=== PATIENT | male | born 2005 | race Caucasian/White ===

== ENCOUNTER 2025-04-26 22:17 | Emergency (ER) | payer MEDICAID, SELFPAY ==
--- OUTSIDE RECORDS SUMMARY | 2025-04-26 22:20 | XMS_ITS | Clinical Summary ---
Author Organization [employer] [facility] [employer] Address [facility] [place] [address] Care Team Providers Care Pull Out Operator Name Role Phone Jayy Monk Primary Care Provider [phone] Allergies Active Allergy Reactions Criticality Noted Date Comments Fluoxetine Rash 07/21/2021 Medications acetaminophen (TYLENOL) 325 mg tablet Take by mouth every 4 hours if needed. Max acetaminophen dose: 4000mg in 24 hrs. 0 08/11/19 16 Active Omeprazole 20 mg tabletIndications :Stomach discomfort Take 1 tablet by mouth once daily before a meal. 30 tablet 5 08/10/19 20 Active clotrimazole (LOTRIMIN) 1 % creamIndications: Rash Apply topically to affected area(s) 2 times daily. 45 g 12/07/19 22 Active cetirizine (ZYRTEC) 10 mg tabletIndications :Seasonal allergic rhinitis, unspecified trigger TAKE ONE TABLET BY MOUTH ONE TIME DAILY 90 Tablet 2 06/26/20 22 Active methylphenidate HCl (RITALIN) 20 mg tabletIndications :ADHD (attention deficit hyperactivity disorder), inattentive type Take 1 Tablet (20 mg) by mouth 2 times daily at 7 AM and Noon. 60 Tablet 11/03/19 23 Active hydrOXYzine HCL (ATARAX) 10 mg tabletIndications :Anxiety disorder, unspecified type Take 1-2 Tablets (10-20 mg) by mouth every 8 hours if needed for Anxiety (or sleep). 25 Tablet 2 09/19/19 24 Active Active Problems Problem Noted Date Diagnosed Date Myopia of both eyes with astigmatism 03/22/2017 Controlled substance agreement signed 02/19/2017 Overview (02/19/2017): Signed 02/19/2017 Dr Margot Smalls Psychiatry Depression 10/29/2016 ADHD (attention deficit hype ractivity disorder), inattentive type 09/20/2016 Psychophysiological insomnia 08/20/2015 Anxiety disorder 08/20/2015 Seasonal allergies 01/11/2015 possible cat, smoke allergies 12/18/2011 Overview (12/18/2011): Possible cat, smoke Resolved Problems Problem Noted Date Diagnosed Date Resolved Date Condyloma acuminatum 06/22/2010 010 Molluscum contagiosum 06/22/20102012 Encounters Date Type Department Care Team Description 04/21/[address] [id number] Jayy Monk PA Form 04/05/[address] [phone] Jayy Monk PA Form 01/25/[address] [address] Jayy Monk PA Form from Last 3 Months Immunizations Immunization Administration Dates Next Due AMB Influenza, (Flumist) Yina e Intranasal,LAIV4 (Flu Clinic Only) 04/25/2012 DTaP 01/15/2006, 5,02/09/2005,12/15 DTaP-IPV (Kinrix) 11/15/2009 HIB PRP-T (ActHIB,Hiberix) 01/15/2006,10/16/2005 HIB-HepB (Comvax) 02/09/2005,2004 HPV 9 (Gardasil 9) 12/18/2017,01/22/2017 Hepatitis A (Peds) 12/18/2017,01/22/2017 Hepatitis B (Peds) 10/16/2005,02/09/2005, 005 Hib Conjugate, Unspecified 01/15/2006,,02/09/2005,12/15 Inactivated Polio Vaccine 01/15/2006,,02/09/2005,12/15 Influenza, IIV3 (Age 6-35 mos) 08/27/2006 Influenza, IIV3 (Age >=3 years) 04/28/20 14,06/12/2010,03/24/2009,07/31 Influenza, IIV4 05/11/2015 MENINGOCOCCAL VACCINE 2 VIAL 2MO-55YO (MENVEO) 01/22/2017 MMR 11/15/2009,01/15/2006 Pneumococcal conj 7-Valent (Prevnar 7) 0 01/15/2006,04/04/2005,02/09/2005,12/15 Tdap 01/22/2017 Varicella Vaccine 11/15/2009,10/16/2005 Family History Medical History Relation Name Comments ADD / ADHD Brother 1 Talib Allergic rhinitis Brother 2 Shahbaz Kidney disease Father Asthma Maternal Grandfather Heart Disease Maternal Grandfather Asthma Maternal Grandmother Thyroid Disease Mother Glaucoma Other pggf Allergic rhinitis Sister Relation Name Status Comments Brother 1 Talib Alive Brother 2 Shahbaz Alive Father Alive Maternal Grandfather Alive Maternal Grandmother Alive Mother Alive Other Paternal Grandfather Alive Paternal Grandmother Alive Sister Alive Social History Tobacco Use Types Packs/Day Years Used Date Smoking Tobacco: Every Day Cigarettes 0.3 11.8 Started: 2013 Smokeless Tobacco: Never Tobacco Cessation:Ready to Q uit: Yes; Counseling Given: Not Answered Comments:non smoking home Alcohol Use Standard Drinks/Week Comments Not Currently 0 (1 standard drink = 0.6 oz pur e alcohol) occ PHQ-2 Answer Date Recorded PHQ-2 TOTAL SCORE 2 11/25/2024 Social Connections Answer Date Recorded Do you often feel lonely or isolated from those around you? 0 11/25/2024 Financial Resource Strain Answer Date R ecorded Difficulty of Paying Living Expenses 3 11/25/2024 Difficulty of Paying Living Expenses Not on file 11/25/2024 Food Insecurity Answer Date Recorded Do you worry your food will run out before you are able to buy more? 1 11/25/2024 Transportation Needs Answer Date Record ed Does lack of transportation keep you from medica l appointments? 1 11/25/2024 Does lack of transportation keep you from work, meetings or getting things that you need? 1 11/25/2024 Housing Stability Answer Date Recorded What is your housing situation today? 1 11/25/2024 Utilities Answer Date Recorded Do you have trouble paying f or utilities (for example, heat, electricity, water, phone)? 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 Not on file Not on file Not on file Obstetrics History Last Filed Vital Signs Vital Sign Reading Time Taken Comments Blood Pressure 124/94 11/25/2024 1:44 PM CDT Pulse 82 11/25/2024 1:42 PM CDT Temperature 36.6 C (97.9 F) 08/10/2019 4:21 PM MEDICAL DIR Respiratory Rate 28 10/26/2012 2:40 PM CDT Oxygen Saturation 95% 11/25/2024 1:42 PM CDT Inhaled Oxygen Concentration - - Weight 117 kg (258 lb) 11/25/2024 1:42 PM CDT Height 184 cm (6' 0.44) 11/25/2024 1:42 PM CDT Body Mass Index 34.57 11/25/2024 1:42 PM CDT Plan of Treatment Health Maintenance Due Date Last Done Comments HIV for age 15-65 10/15/2019 Hepatitis C screening for age 18-79 2022 Pneumococcal series for age 6-49 (1 of 2 - PCV) 10/15/2023 01/15/2006, 04/04/2005, 02/09/2005, Additional history exists COVID-19 vaccine series ( - season) 2025 Influenza Vaccine (#1) 2025 5, 04/28/2014, 04/25/2012, Additional history exists BMI (ht and wt on same day) for age 18+ 11/25/2025 11/25/2024, 09/19/2023, 12/11/2022 Depression screening for age 12+ 11/25/2025 11/25/2024, 12/11/2022, 12/09/2021, Additional history exists Well Child Check for age 3-20 11/25/2025 11/25/2024, 12/11/2022, 12/06/2021, Additional history exists Tetanus booster 01/22/2027 01/22/2017 RSV vaccine for adults or (1 - 1-dose 75+ series) 10/15/2079 Hepatitis B series for 19+ Completed 10/16, 02/09/2005, 02/09/2005, Additional history exists Meningococcal series for age 11-21 Aged Out 01/22/2017 No longer eligible based on patient's age to complete this topic HPV series for age 9-45 Completed 12/18/2017, 01/22 Insurance [facility] MEDICAID [facility] Care Teams Pull Out Operator Relationship Specialty [place] [address] [place] [address] PCP - General Family Practice 10/28/13
[2025-04-26 22:26] VITALS: BP 133/87; PULSE 128; RESP 20; TEMP 36.6; O2SAT 97; BMI 76.2
--- NOTE | 2025-04-26 22:42 | CRLHL7_ITS ---
For Patients: As a result of the Cures Act, medical imaging exams and procedure reports are released immediately into your electronic medical record. You may view this report before your referring provider. If you have questions, please contact your health care provider. INDICATION: Two weeks cough. TECHNIQUE: Chest 2 view. COMPARISON: None. FINDINGS: Cardiovascular: Heart size and pulmonary vasculature are within normal limits. Lungs and pleural spaces: No focal consolidation, pleural effusion, or pneumothorax. There is a 5 mm nodular opacity in the lateral right upper lung, likely benign in this age group, versus artifact. Bones and soft tissues: No significant findings. IMPRESSION: No acute cardiopulmonary findings. Dictated by Yashira Tripp MD @ 04/26/2025 11:34:09 PM (Electronically Signed)
--- NOTE | 2025-04-26 22:42 | ED_ITS ---
HPI - General Adult General Time Seen by Provider: 22:42 Date Seen: 04/26/25 Chief complaint: Cough Stated complaint: cough/vomiting/fever Time Seen by Provider: 04/26/25 22:42 Source: patient, family, RN notes reviewed and old records reviewed Mode of arrival: ambulatory Limitations: no limitations History of Present Illness HPI narrative: Ravin is a very pleasant 19-year-old with up-to-date immunizations who comes to the emergency room with vomiting and cough. Patient notes the onset of a cough 2 weeks ago initially with sore throat the dissipated after the 1st day. He had actually been getting better but then over the last 48 hours his cough is increasing and today he has even had vomiting from coughing so hard. Denies a fever, ear pain. Thinks that his throat was sore on the 1st day because he was snoring and his uvula was swollen. This has since dissipated as previously noted. No diarrhea. History of childhood bronchospasms and has used nebulizer in the past. Related Data Home Medications ?Medication ?Instructions ?Recorded ?Confirmed methylphenidate 25.9 mg ER,IR 25.9 mg PO DAILY 5 04/26/25 disintegrating 24 hr tablet (Cotempla XR-ODT) Previous Rx's ?Medication ?Instructions ?Recorded albuterol sulfate 90 mcg/actuation 2 puff inhalation Q 6H PRN 04/26/25 aerosol inhaler (Ventolin HFA) shortness of breath or wheezing #6.7 grams Allergies Allergy/AdvReac Type Severity Reaction Status Date / Time Unable to Assess Allergy Verified 04/26/25 22:33 Review of Systems Status of ROS: Reports: 10 or more systems reviewed and unremarkable except as noted in History and below Const: Denies: fever or chills ENMT: Reports: nasal congestion; Denies: throat pain or neck pain Cardio: Denies: chest pain Resp: Reports: cough GI: Reports: vomiting; Denies: abdominal pain Musculo: Denies: neck pain Exam Narrative: Exam Narrative: Alert and oriented. Very pleasant gentleman in no acute distress. Eyes are clear. TMs bilaterally thought erythema. Neck is supple with no lymphadenopathy. Voice is normal with no unusual quality. Heart with regular rate and rhythm initially tachycardic upon arrival but now in the upper 90s.. Mild expiratory wheezing noted. Moving all extremities. No unusual rashes. Const: Vital Signs, click to edit/add: Vital Signs - 24 hr 04/26/25 22:26 Temperature 97.9 F Pulse Rate [Pulse Oximeter] 128 H Respiratory Rate 20 Blood Pressure [Le ft Upper Arm] 133/87 Pulse Oximetry 97 Oxygen Delivery Me thod Room Air Documenting provider has reviewed patient's vital signs: yes Course Course ED Course: Vomiting is limited to severe cough. I do hear him cough and there is no whoop like quality anemia is a shins are up-to-date and thus I do not think this is whooping cough or pertussis. Patient has had triple swab done. While I do think that this likely started as a viral infection possibly even COVID he did have gradual improvement and then sudden worsening over the last 2 days. We will obtain chest x-ray at this time to look for secondary pneumonia. Will try a DuoNeb as well. Given tachycardia would consider PE but no calf tenderness and patient has appropriate O2 sets. No chest pain. Reevaluation(s) Reevaluation #1: Patient much improved after albuterol nebulizer. Vital Signs Vital signs: Initial Vital Signs Temperature 97.9 F 04/26/25 22:26 Temperature Source Temporal Artery Scan 04/26/25 22:26 Pulse Rate 128 H 04/26/25 22:26 Respiratory Rate 20 04/26/25 22:26 Blood Pressure 133/87 04/26/25 22:26 Blood Pressure Mean 102 04/26/25 22:26 Pulse Oximetry 97 04/26/25 22:26 Oxygen Delivery Method Room Air 04/26/25 22:26 Vital Signs Temperature 97.9 F 04/26/25 22:26 Pulse Rate 128 H 04/26/25 22:26 Respiratory Rate 20 04/26/25 22:26 Blood Pressure 133/87 04/26/25 22:26 Pulse Oximetry 97 04/26/25 22:26 Oxygen Delivery Method Room Air 04/26/25 22:26 Temperature 97.9 F 04/26/25 22:26 Pulse Rate 128 H 04/26/25 22:26 Respiratory Rate 20 04/26/25 22:26 Blood Pressure 133/87 04/26/25 22:26 Pulse Oximetry 97 04/26/25 22:26 Oxygen Delivery Method Room Air 04/26/25 22:26 Medications Administered Medications: Discontinued Medications Generic Name Dose Route Start Last Admin Trade Name Ljq PRN Reason Stop Dose Admin Albuterol/Ipratropium 1 neb 04/26/25 22:44 04/26/25 23:05 Iprat-Albut 0.5-2.5 Mg/3 Ml Neb 04/26/25 22:45 1 neb ONCE ONE Administration Medical Decision Making MDM Narrative Medical decision making narrative: 1. Lower respiratory infection-patient noted initial improvement over 2 weeks. Better over the past 48 hours has increasing cough. Will treat with Zithromax is chest x-ray is reassuring. 500 mg today followed by 250 mg days 2 through 5. Will also provide inhaler through pharmacy. Triple swab is negative. Patient will need to return for worsening symptoms and as needed. 2. Pulmonary nodule-likely benign in this age group according to Radiology but will inform patient. Will need follow-up chest x-ray in 3-6 months to ensure no change in size. Did discuss with Ravin and his mom in regards to this. 3. Disposition -home at this time. Zithromax as directed. Prednisone 20 mg b.i.d. x 3 days. Both medications will be sent to our [facility] meds machine. Albuterol inhaler will be sent to pharmacy. Puffs q.4 hours p.r.n.. Return as needed for worsening symptoms especially high fever difficulty breathing and as needed. Discussed cessation of vaping as well. Medical Records Medical records reviewed: Yes I reviewed the patient's medical records Lab Data Lab results reviewed: Yes I reviewed the patient's lab results Labs: Lab Results 04/26/25 Range/Units 22:30 SARS-CoV-2 (PCR) Negative SARS-CoV-2 (Negative) Influenza Type A (PCR) Negative PCR FLU A (Negative) Influenza Type B (PCR) Negative PCR FLU B (Negative) RSV (PCR) Negative PCR RSV (Negative) Imaging Data Chest x-ray: Attestation: I have reviewed the pertinent imaging results. My impression: I do not note any obvious pneumonia. Radiologist's impression: Cardiovascular: Heart size and pulmonary vasculature are within normal limits. Lungs and pleural spaces: No focal consolidation, pleural effusion, or pneumothorax. There is a 5 mm nodular opacity in the lateral right upper lung, likely benign in this age group, versus artifact. Bones and soft tissues: No significant findings. IMPRESSION: No acute cardiopulmonary findings. Discharge Plan Discharge Clinical Impression: Infection of lower respiratory tract Patient Disposition: Home, Self-Care Condition: Improved Additional Instructions: Start Zithromax and prednisone tonight. Albuterol has been sent to your pharmacy. Push fluids and stay well hydrated. Return to the emergency room for worsening symptoms. Follow-up with your primary MD in regards to a pulmonary nodule in the lung. According to radiologist: Cardiovascular: Heart size and pulmonary vasculature are within normal limits. Lungs and pleural spaces: No focal consolidation, pleural effusion, or pneumothorax. There is a 5 mm nodular opacity in the lateral right upper lung, likely benign in this age group, versus artifact. Bones and soft tissues: No significant findings. IMPRESSION: No acute cardiopulmonary findings. Prescriptions: New albuterol sulfate [Ventolin HFA] 90 mcg/actuation HFA aerosol inhaler 2 puff inhalation Q6H PRN (Reason: shortness of breath or wheezing) Qty: 6.7 0RF Rx Instructions: May substitute generic No Action Cotempla XR-ODT 25.9 mg tablet,disinteg ER biphase 24h 25.9 mg PO DAILY Follow Up/Referrals: Provider,Not a Local [Non-Staff, Family Practice] Stand Alone Forms: [employer] Info Instructions
[2025-04-26] MEDS: IPRAT-ALBUT 0.5-2.5 MG/3 ML NEB 1 NEB IH (23:05)
[2025-04-26 23:18] LABS: PCR FLU A Negative PCR FLU A (Negative); PCR FLU B Negative PCR FLU B (Negative); PCR RSV Negative PCR RSV (Negative); SARS PCR* Negative SARS-CoV-2 (Negative)
[2025-04-26 23:58] VITALS: BP 123/81; PULSE 113; RESP 18; O2SAT 95
== END 2025-04-27 00:04 | disposition home or self-care (01) ==
PROVIDERS: Emergency Provider Family Medicine; PCP Physician Assistant Medical
DX: J22 Unspecified acute lower respiratory infection (principal); R91.1 Solitary pulmonary nodule
CPT/HCPCS: 71046; 87631; 99283; 99284

== ENCOUNTER 2025-06-15 18:00 | Outpatient (CLI) | payer MEDICAID, SELFPAY | END 2025-06-15 18:01 | disposition home or self-care (01) | LOC: NFLDUCREF 18:01 | PROVIDERS: PCP Physician Assistant Medical; Visit Provider Physician Assistant | DX: R10.85 Abdominal pain of multiple sites (principal) | CPT/HCPCS: 80053; 87086 ==

== ENCOUNTER 2025-06-15 19:09 | Emergency (ER) | payer MEDICAID, SELFPAY ==
--- OUTSIDE RECORDS SUMMARY | 2025-06-15 19:11 | XMS_ITS | Clinical Summary ---
Author Organization [facility] Address [facility] [place] [address] Care Team Providers Care Rn Perioperative Name Role Phone Jayy Monk Primary Care Provider [phone] Allergies Active AllergyReactionsCriticalityNoted GnzyNhjbokpcIbjymezhvuXywc80/14/2022 Medications MedicationSigDispense QuantityRefillsLast FilledStart DateEnd DateStatus acetaminophen (TYLENOL) 325 mg tablet Take by mouth every 4 hours if needed. Max acetaminophen dose: 4000mg in 24 hrs. Active Omeprazole 20 mg tablet Indications:Stomach discomfortTake 1 tablet by mouth once daily before a meal. 30 tablet Active Additional Information Patient not taking.Reported on 04/27/2025 clotrimazole (LOTRIMIN) 1 % cream Indications:RashApply topically to affected area(s) 2 times daily. 45 g 12/06/2021ctive Additional Information Patient not taking.Reported on 04/27/2025 cetirizine (ZYRTEC) 10 mg tablet Indications:Seasonal allergic rhinitis, unspecified triggerTAKE ONE TABLET BY MOUTH ONE TIME DAILY 90 Tablet ctive methylphenidate HCl (RITALIN) 20 mg tablet Indications:ADHD (attention deficit hyperactivity disorder), inattentive type Take 1 Tablet (20 mg) by mouth 2 times daily at 7 AM and Noon. 60 Tablet 11/02/2022ctive hydrOXYzine HCL (ATARAX) 10 mg tablet Indications:Anxiety disorder, unspecified typeTake 1-2 Tablets (10-20 mg) by mouth every 8 hours if needed for Anxiety (or sleep). 25 Tablet 4Active Additional Information Patient not taking.Reported on 04/27/2025 albuterol-ipratropium (DUONEB) (2.5 mg-0.5 mg)/3 mL NEBULIZATION solution Indications:Lower respiratory infectionInhale 3 mL via a nebulizer 4 times daily if needed for Shortness Of Breath. 75 mL 5Active Nebulizer Indications:Lower respiratory infectionNebulizer, disposable neb kit x 4, reuseable neb kit x 1, mask x 1, filters x 1. Frequency of use: daily; Medication: Duoneb Length of need: 99 scysit105Active Active Problems ProblemNoted DateDiagnosed DateMyopia of both eyes with thacehkafdx18/15/2017 Controlled substance agreement ytqgzy8402/19/2017 Overview (02/19/2017): Signed 02/19/2017 Dr Margot Smalls Psychiatry Mzabtldoay39/24/2017ADHD (attention deficit hyperactivity disorder), inattentive type09/20/2016Psychophysiological cesnzlot51/13/2016Anxiety urvnioxa49/13/2016 Seasonal hpnmuanmf34/07/2015possible cat, smoke /12/2012 Overview (12/18/2011): Possible cat, smoke Resolved Problems ProblemNoted DateDiagnosed DateResolved DateCondyloma mpbdoxwumr02/16/2010 06/22/2010Molluscum xarjtikojuf77 Encounters DateTypeDepartmentCare MzoaDpizdyuujcy82/04/2025 10:00 AM CSTAncillary Procedure [facility] [address] [place] [address] Wkfqqye7106/10/20254966Recdjy16/29/0002Apdynh12/22/2025 11:30 AM CDTAncillary Procedure [facility] [address] [place] [address] 04/27/2025 2:00 PM CDTOffice Visit [facility] [id number] [place] [address] Jayy Monk PA Hospital F/U; Medication List Update (Zithromax and prednisone, albuterol inhaler)04/27/20253713Ceipgx30/20/2025Orders Only [facility] Scanner 1 scan: (1-Ord) [facility], XR CHEST 2V, 51Telephone [address] [address] Jayy Monk PA Form04/05/2025Telephone [address] [address] Jayy Monk PA Formfrom Last 3 Months Immunizations ImmunizationAdministration DatesNext DueAMB Influenza, (Flumist) Live Intranasal,LAIV4 (Flu Clinic Only)04/25/2012DTaP01/15/2006,04/04/2005,02/09/2005 ,2004DTaP-IPV (Kinrix)11/15/2009HIB PRP-T (ActHIB,Hiberix)01/15/2006, 10/16/2005HIB-HepB (Comvax)02/09/2005,2004HPV 9 (Gardasil 9)12/18/2017, 01/22/2017Hepatitis A (Peds)12/18/2017,01/22/2017Hepatitis B (Peds)10/16/2005, 02/09/2005,2004Hib Conjugate, Pvvcuqtlbti25/11/2006,10/16/2005,02/09/2005, 2004Inactivated Polio Kedbitc4601/15/2006,04/04/2005,02/09/2005,2004 Influenza, IIV3 (Age 6-35 mos)08/27/2006Influenza, IIV3 (Age >=3 years) 04/28/2014,06/12/2010,03/24/2009,07/31/2007Influenza, CBT594/10/2014 MENINGOCOCCAL VACCINE 2 VIAL 2MO-55YO (MENVEO)01/22/2017MMR11/15/2009,01/15/2006 Pneumococcal conj 7-Valent (Prevnar 7)01/15/2006,04/04/2005,02/09/2005, 2004Tdap01/22/2017Varicella Hyrkevp9411/15/2009,10/16/2005 Family History Medical HistoryRelationNameCommentsADD / ADHDBrother 1JamisonAllergic rhinitis Brother 2BryceKidney diseaseFatherAsthmaMaternal GrandfatherHeart Disease Maternal GrandfatherAsthmaMaternal GrandmotherThyroid DiseaseMotherGlaucomaOther pggfAllergic rhinitisSisterRelationNameStatusCommentsBrother 1JamisonAlive Brother 2BryceAliveFatherAliveMaternal GrandfatherAliveMaternal GrandmotherAlive MotherAliveOtherPaternal GrandfatherAlivePaternal GrandmotherAliveSisterAlive Social History Tobacco UseTypesPacks/DayYears UsedDateSmoking Tobacco: Every DayCigarettes0.3 11.9Started: 2014Smokeless Tobacco: Never Tobacco Cessation:Ready to Q uit: Yes; Counseling Given: Not Answered Comments:non smoking home Alcohol UseStandard Drinks/WeekCommentsNot Currently0 (1 standard drink = 0.6 oz pure alcohol)occPHQ-2AnswerDate RecordedPHQ-2 TOTAL AYBER236Social ConnectionsAnswerDate RecordedDo you often feel lonely or isolated from those around you?lcohol UseAnswerDate RecordedFrequency of Alcohol ConsumptionNot on file04/27/2025How many drinks containing alcohol do you have on a typical day when you are drinking?Frequency of Binge DrinkingNot on file04/27/2025Financial Resource StrainAnswerDate RecordedDifficulty of Paying Living Gimzgpnd008/21/2025Difficulty of Paying Living ExpensesNot on file 11/25/2024Food InsecurityAnswerDate RecordedDo you worry your food will run out before you are able to buy more?Transportation NeedsAnswerDate RecordedDoes lack of transportation keep you from medical appointments?1 11/25/2024Does lack of transportation keep you from work, meetings or getting things that you need?Housing StabilityAnswerDate RecordedWhat is your housing situation today?UtilitiesAnswerDate RecordedDo you have trouble paying for utilities (for example, heat, electricity, water, phone)?1 11/25/2024Sex and Gender InformationValueDate RecordedSex Assigned at BirthNot on fileLegal NjpPhyb7807/21/2012 7:53 AM CSTGender IdentityNot on fileSexual OrientationNot on fileOccupationIndustryJob Start DateJob End Dateshift leadNot on fileNot on fileNot on file Last Filed Vital Signs Vital SignReadingTime TakenCommentsBlood Awjfducd710/7004/27/2025 2:16 PM CDT Ifgja61542/21/2025 2:16 PM KKWErterspgrvn82.9 ??C (100.2 ??F)04/27/2025 2:16 PM CDTRespiratory Qidb070710/26/2012 2:40 PM CDTOxygen Yurtjirqlr10%04/27/2025 2:16 PM CDTInhaled Oxygen Concentration--Fjjsmt535.3 kg (256 lb 4.8 oz)04/27/2025 2:16 PM QIVYukqbc971 cm (6' 0.44)11/25/2024 1:42 PM CDTBody Mass Index-- Plan of Treatment Health MaintenanceDue DateLast DoneCommentsHIV for age 15- Meningococcal series for age 11-21 (2 - 2-dose series) Hepatitis C screening for age 18-793Pneumococcal series for age 6-49 (1 of 2 - PCV), 04/04/2005, 02/09/2005, Additional history existsCOVID-19 vaccine series ( - 2024- season)2025Influenza Vaccine (#1)/10/2014, 04/28/2014, 04/25/2012, Additional history existsBMI (ht and wt on same day) for age 18+/, 09/19/2023, 12/11/2022 Depression screening for age 12+/, 12/11/2022, 12/09/2021, Additional history existsWell Child Check for age 3-/, 12/11/2022, 12/06/2021, Additional history existsTetanus gghxadn6201/22/2027 01/22/2017Hepatitis B series for 19+Hggfufqla85/11/2006, 02/09/2005, 02/09/2005, Additional history existsHPV series for age 9-83Qflerqyod81/13/2018, 01/22/2017 Procedures Procedure NamePriorityDate/TimeAssociated DiagnosisCommentsXR CHEST 2 VIEWS PA AND EINFJSPTmuowjo18/04/2025 9:52 AM DATABASE DESIGN ANALYST Lower respiratory infection CT CHEST PVHPRC41 11:46 AM CDT Lung nodule SCAN-RADIOLOGY JLDGWR6504/26/2025 12:00 AM CDT from Last 3 Months Results * XR CHEST 2 VIEWS PA AND LATERAL (06/10/2025 9:52 AM DATABASE DESIGN ANALYST)Anatomical Region LateralityModalityCHEST, THORAX, Lung, HEARTComputed RadiographySpecimen (Source)Anatomical Location / LateralityCollection Method / VolumeCollection TimeReceived Time06/10/2025 1:42 PM DATABASE DESIGN ANALYST Narrative 06/10/2025 1:42 PM DATABASE DESIGN ANALYST For Patients: As a result of the Cures Act, medical imaging exams and procedure reports are released immediately into your electronic medical record. You may view this report before your referring provider. If you have questions, please contact your health care provider. INDICATION: Lower respiratory tract infection TECHNIQUE: Chest 2 views. COMPARISON: CT chest April 28, 2025 FINDINGS/ IMPRESSION: No abnormal airspace opacity, suggest resolution of previously noted endobronchial infection. No effusion or pneumothorax. Cardiac size is within normal limit without pulmonary edema. No acute osseous abnormality. Dictated by Jaciel Bolanos MD @ 06/10/2025 1:42:41 PM (Electronically Signed) Procedure Note Jaciel Bolanos MD - 06/10/2025 For Patients: As a result of the Cures Act, medical imagingexams and procedure reports are released immediately into your electronicmedical record. You may view this report before your referring provider.If you have questions, please contact your health care provider. INDICATION: Lower respiratory tract infection TECHNIQUE: Chest 2 views. COMPARISON: CT chest April 28, 2025 FINDINGS/ IMPRESSION: No abnormal airspace opacity, suggest resolution of previously noted endobronchial infection. No effusion or pneumothorax. Cardiac size is within normal limit without pulmonary edema. No acute osseous abnormality. Dictated by Jaciel Bolanos MD @ 06/10/2025 1:42:41 PM (Electronically Signed) Authorizing ProviderResult TypeResult StatusRobbin Gamaliel Monk PAGENERAL IMAGING Final Result * CT CHEST WO (04/28/2025 11:46 AM CDT)Anatomical RegionLateralityModalityCHEST, THORAX, HEARTComputed TomographySpecimen (Source)Anatomical Location / LateralityCollection Method / VolumeCollection TimeReceived Time04/28/2025 1:08 PM CDT Impressions 04/28/2025 1:08 PM CDT 1. Multifocal clusters of centrilobular ground-glass opacities and areas of nodular consolidation most pronounced within the right upper lobe likely corresponding to finding of pulmonary nodule on outside chest radiograph and most consistent with endobronchial infection. 2. Severe diffuse hepatic steatosis. Please note that all CT scans at this facility use dose modulation, iterative reconstruction, and/or weight-based dosing when appropriate to reduce radiation dose to as low as reasonably achievable. Dictated by Haleigh Quigley MD @ 04/28/2025 1:08:00 PM (Electronically Signed) Narrative 04/28/2025 1:08 PM CDT For Patients: As a result of the Cures Act, medical imaging exams and procedure reports are released immediately into your electronic medical record. You may view this report before your referring provider. If you have questions, please contact your health care provider. INDICATION: Lung nodule seen in lateral right upper lobe on recent outside chest x-ray TECHNIQUE: CT chest without contrast. COMPARISON: CT chest without contrast 10/01/2018. FINDINGS: Lungs and pleura: There are multiple clusters of centrilobular ground-glass and solid nodules most pronounced in the right upper lobe. The largest nodule measures up to 1.5 centimeters in size in thelateral right upper lobe (series 9, image 52). No pleural effusion or pneumothorax. Heart and vasculature: Heart size is normal. Thoracic aorta and pulmonary artery are normal in caliber. Lymph nodes/mediastinum: No mediastinal, hilar, or axillary adenopathy. Decreased small amount of anterior mediastinal soft tissue consistent with residual thymus. Chest wall: Minimal gynecomastia. Upper abdomen: Marked diffuse hepatic steatosis. Bones: No acute or suspicious osseous abnormality. Vacuum phenomenon within the bilateral glenohumeral joints. Procedure Note Haleigh Quigley MD - 04/28/2025 For Patients: As a result of the Cures Act, medical imagingexams and procedure reports are released immediately into your electronicmedical record. You may view this report before your referring provider.If you have questions, please contact your health care provider. INDICATION: Lung nodule seen in lateral right upper lobe on recent outside chest x-ray TECHNIQUE: CT chest without contrast. COMPARISON: CT chest without contrast 10/01/2018. FINDINGS: Lungs and pleura: There are multiple clusters of centrilobularground-glass and solid nodules most pronounced in the right upper lobe.The largest nodule measures up to 1.5 centimeters in size in the lateralright upper lobe (series 9, image 52). No pleural effusion orpneumothorax. Heart and vasculature: Heart size is normal. Thoracic aorta and pulmonaryartery are normal in caliber. Lymph nodes/mediastinum: No mediastinal, hilar, or axillary adenopathy.Decreased small amount of anterior mediastinal soft tissue consistent withresidual thymus. Chest wall: Minimal gynecomastia. Upper abdomen: Marked diffuse hepatic steatosis. Bones: No acute or suspicious osseous abnormality. Vacuum phenomenonwithin the bilateral glenohumeral joints. IMPRESSION: 1. Multifocal clusters of centrilobular ground-glass opacities and areasof nodular consolidation most pronounced within the right upper lobelikely corresponding to finding of pulmonary nodule on outside chestradiograph and most consistent with endobronchial infection. 2. Severe diffuse hepatic steatosis. Please note that all CT scans at this facility use dose modulation,iterative reconstruction, and/or weight-based dosing when appropriate toreduce radiation dose to as low as reasonably achievable. Dictated by Haleigh Quigley MD @ 04/28/2025 1:08:00 PM (Electronically Signed) Authorizing ProviderResult TypeResult StatusRobbin Gamaliel Monk PACTFinal Result * SCAN-RADIOLOGY REPORT (04/26/2025 12:00 AM CDT)Anatomical RegionLaterality ModalityOther Narrative Authorizing ProviderResult TypeResult StatusScannerOTHERFinal Result from Last 3 Months Insurance * Guarantor: Ravin Araujo TypeRelation to PatientDate of BirthPhoneSp[facility] AddressPersonal/TexbmcXoyd79/09/2006 [address] [place] [address] * Guarantor: Ravin Araujo TypeRelation to PatientDate of BirthSaint [facility] AddressPersonal/FfqjmaSzfs22/09/2006 [address] [place] [address] Care Teams Team MemberRelationshipSpecialty[place] [address] [place] [address] PCP - GeneralFamily Practice10/28/13
--- NOTE | 2025-06-15 19:13 | ED_ITS ---
HPI - General Adult General Date Seen: 06/15/25 Chief complaint: Abdominal Pain Stated complaint: blood in urine Time Seen by Provider: 06/15/25 19:10 History of Present Illness HPI narrative: 19-year-old male is referred to the ER today from urgent care with concerns of dark colored/brown urine, possibly hematuria. He was seen in the [facility] today by Dr. Harpreet scherer. He had had a history of 24 hours of diarrhea with 10-15 diarrheal stools yesterday and 5-6 today. No mucousy stool. This afternoon he and he knows little bit of blood on the toilet paper while wiping his gluteal cleft. He has vomited only 1 time. He is having abdominal pain, in the epigastrium and right side of his lower abdomen. No fevers or other body aches. He has been using ammonia foot is still having diarrhea. He is having dark tea-colored urine. He was referred to the ER with concern for possible hepatitis, colitis, or acute kidney injury. CBC was normal in urgent care. White blood cell count 8.16, hemoglobin 16.3, platelet 199. Sodium 138, potassium 4.0, chloride 95, bicarb 30, BUN 15, creatinine 1.3, glucose 95, calcium 9.1. Total bilirubin 1.3. Alk-phos normal at 61. AST mildly elevated at 51. ALT elevated at 83. Urinalysis was brown colored. There was 3+ protein, trace glucose, positive ketones, 3+ blood, negative nitrite. Positive bilirubin, greater than 100 red cells per high-power field. 2-5 white cells. History from the patient, supplemented by his mother... He works at [employer]. He ate a pizza that was undercooked on Saturday night. He was made by 1 of his friends a pop or if he has any thinks that he probably some the dull was undercooked and his friend put a lot of jalapeno some pepperoni on it and also lot of jalapeno juice. He started with GI symptoms, notably GI upset and frequent watery diarrhea following morning on Saturday. He had many watery stools that day, typically triggered every time he tried to eat or drink anything. He was not really nauseous and only vomited 1 time. No significant pain. No fever. GI symptoms or ongoing yesterday predominantly with diarrhea. Today the diarrhea has changed and is still frequent but a little bit less frequent ware from bring watery to were blood tinged. He is having a little bit of lower abdominal pain today. No weakness. No fever. Urination has also been quite a bit darker in brown colored since yesterday. No flank pain. No known injury. He has no known personal or family history of inflammatory bowel disease. Mother notes that she has a lot of GI problems which sounds like are not clearly diagnosed yet. It sounds like Crohn's disease has been ruled out for her. Other than his undercooked pizza, no other suspicious food intake. No recent travel. No recent antibiotics. His fiancee is here with him and she is not ill Related Data Home Medications ?Medication ?Instructions ?Recorded ?Confirmed methylphenidate 25.9 mg ER,IR 25.9 mg PO DAILY 5 06/15/25 disintegrating 24 hr tablet (Cotempla XR-ODT) Previous Rx's ?Medication ?Instructions ?Recorded albuterol sulfate 90 mcg/actuation 2 puff inhalation Q 6H PRN 04/26/25 aerosol inhaler (Ventolin HFA) shortness of breath or wheezing #6.7 grams Allergies Allergy/AdvReac Type Severity Reaction Status Date / Time Fish Containing Products Allergy Unknown Verified 06/15/25 19:30 Penicillins Allergy Unknown Verified 06/15/25 19:30 PFSH [facility] Social History Smoking Status: Current every day smoker Do you use any of these nicotine containing products: None and Vaping Products How often do you have a drink containing alcohol: monthly or less How often do you have six or more drinks on one occasion: Less than monthly AUDIT-C Alcohol total score: 2 Non-prescribed substance use: denies use service: No Exam Narrative: Exam Narrative: Constitutional: Appears well-developed and well-nourished. Alert. Robust. Overall well-appearing. Conversant. Non toxic. HENT: Head: Atraumatic. Nose: Nose normal. Mouth/Throat: Oral mucosa is clear and moist. no trismus. Pharynx normal. Tonsils symmetric. No tonsillar enlargement, erythema, or exudate. Eyes: Conjunctivae normal. EOM normal. Pupils equal, round, and reactive to light. No scleral icterus. Neck: Normal range of motion. Neck supple. No tracheal deviation present. Cardiovascular: Normal rate, regular rhythm. No gallop. No friction rub. No murmur heard. Symmetric radial artery pulses Pulmonary/Chest: Effort normal. No stridor. No respiratory distress. No wheezes. No rales. No rhonchi . No tenderness. Abdominal: Soft. Bowel sounds normal. No distension. No mass. Suprapubic and left lower quadrant tenderness. No rebound. No guarding. No CVA tenderness. Musculoskeletal: RUE: Normal range of motion. No tenderness. No deformity LUE: Normal range of motion. No tenderness. No deformity RLE: Normal range of motion. No edema. No tenderness. No deformity LLE: Normal range of motion. No edema. No tenderness. No deformity Neurological: Alert and oriented to person, place, and time. Normal strength. CN II-VII intact. No sensory deficit. GCS eye subscore is 4. GCS verbal subscore is 5. GCS motor subscore is 6. Normal coordination Skin: Skin is warm and dry. No rash noted. No pallor. Normal capillary refill. Psychiatric: Normal mood. Normal affect. Polite. Const: Vital Signs, click to edit/add: Vital Signs - 24 hr 06/15/25 19: Temperature 98.4 F Pulse Rate [Right Pulse Oximeter] 90 Respiratory Rate 18 Blood Pressure [Ri ght Upper Arm] 147/87 H Pulse Oximetry 96 Oxygen Delivery Me thod Room Air Course Course ED Course: Recheck-feeling much better after IV fluids. Was up to the bathroom and urinated clear urine. Recheck had a bloody stool that was semi formed. Stool collected and sent to lab for culture. He is feeling better. Vital Signs Vital signs: Initial Vital Signs Temperature 98.4 F 06/15/25 19:22 Temperature Source Temporal Artery Scan 06/15/25 19:22 Pulse Rate 90 06/15/25 19:22 Pulse Rhythm Regular 06/15/25 19:22 Pulse Strength 3+ Normal 06/15/25 19:22 Respiratory Rate 18 06/15/25 19:22 Blood Pressure 147/87 H 06/15/25 19:22 Blood Pressure Mean 107 H 06/15/25 19:22 Blood Pressure Position Sitting 06/15/25 19:22 Pulse Oximetry 96 06/15/25 19:22 Oxygen Delivery Method Room Air 06/15/25 19:22 Vital Signs Temperature 98.4 F 06/15/25 19:22 Pulse Rate 90 06/15/25 19:22 Respiratory Rate 18 06/15/25 19:22 Blood Pressure 147/87 H 06/15/25 19:22 Pulse Oximetry 96 06/15/25 19:22 Oxygen Delivery Method Room Air 06/15/25 19:22 Temperature 98.4 F 06/15/25 19:22 Pulse Rate 90 06/15/25 19:22 Respiratory Rate 18 06/15/25 19:22 Blood Pressure 147/87 H 06/15/25 19:22 Pulse Oximetry 96 06/15/25 19:22 Oxygen Delivery Method Room Air 06/15/25 19:22 Medications Administered Medications: Discontinued Medications Generic Name Dose Route Start Last Admin Trade Name Freq PRN Reason Stop Dose Admin Sodium Chloride 1,000 mls @ 1,000 mls/hr 06/15/25 20:00 06/15/25 21:04 0.9 % Sodium Chloride 1000 Ml IV 06/15/25 20:59 Infused .Q1H JUAN Infusion Medical Decision Making MDM Narrative Medical decision making narrative: Pleasant generally healthy 19-year-old male is referred to the ER today from the urgent care with concern for diarrhea (ongoing now for 2 and half days). Stool was initially watery but now has turned bloody. Along with that he has had brown colored urine and has signs of microscopic hematuria on his urinalysis from urgent care. Concern here is for possible infectious diarrhea, including bacterial enteritis since he did have some undercooked food on the day prior to developing symptoms. I have ordered stool bacterial pathogens panel and C diff. however, I strongly suspect bacterial enteritis. Less likely would be potential autoimmune colitis such as Crohn's. Differential for hematuria includes kidney stone. CT scan shows a mild colitis without any perforation, abscess, obstruction. Also some associated reactive lymph nodes. With presentation of infectious diarrhea and hematuria concern also would be potential development of hemolytic uremic syndrome. On labs from Urgent Care he does not have anemia, thrombocytopenia. Creatinine from urgent care is 1.3 but with no baseline unclear if this is an acute kidney injury or potentially his normal. He has a fairly robust, muscular young man. At this point he does not have any signs of acute renal failure, thrombocytopenia, anemia. We discussed potential peripheral smear to look for signs of hemolysis with our laboratory, but this test is not available here in the ER tonight. Repeat labs here in the ER show stable hemoglobin, actually slightly improved down to 1.2. Hemoglobin and platelet count are stable. LFTs are mildly abnormal and slightly improved compared to earlier. Based on presence of colitis on CT I would doubt a viral hepatitis. Patient and his mother report that he has had mildly abnormal LFTs at previous Dr. Checkups. However I do not have those records available to me here. Venous lactic acid is normal. He is hemodynamically stable and overall nontoxic appearing. He feels much better after IV fluids. No ongoing abdominal pain. No fever. He had 1 small volume bloody semi formed stool here in the ER but no further diarrhea. No vomiting. He is comfortable managing his symptoms at home with his mother and fiancee. Discussed that this is probably an infection and that we need to take precautions. Stay home from work until he is better. Also avoid spreading his terms to his family. Discussed that he needs follow-up within 24-48 hours. Return to the ER immediately if worse. Questions answered. Lab Data Labs: Lab Results 06/15/25 Range/Units 20:00 WBC 7.96 (4.50-11.00) K/uL RBC 5.44 (4.30-5.90) m/uL Hgb 15.5 (13.5-17.5) gm/dL Hct 45.6 (37.0-53.0) % MCV 84 (80-100) fL MCH 29 (26-34) pg MCHC 34 (32-36) gm/dL RDW Coeff of Kp 12.2 (11.5-15.5) % Plt Count 203 (140-440) K/uL Neut % (Auto) 67.7 (42.0-72.0) % Lymph % (Auto) 18.1 L (20-44) % [place] % (Auto) 11.1 H (0.0-11.0) % Eos % (Auto) 2.5 (0.0-7.0) % Baso % (Auto) 0.5 (0.0-3.0) % Neut # (Auto) 5.39 (1.7-7.0) K/uL Lymph # (Auto) 1.40 (0.90-2.90) K/uL [place] # (Auto) 0.90 (0.00-0.90) K/UL Eos # (Auto) 0.20 (0.00-0.50) K/uL Baso # (Auto) 0.04 (0.00-0.30) K/uL Abs Immat Gran (auto) 0.01 (0.00-0.30) K/uL Imm/Tot Granulo (auto) 0.1 % Absolute Retic 0.08 (0.03-0.08) # Percent Retic 1.5 (0.5-2.0) % Immature Retic Fraction 19.5 H (2.3-13.4) % Retic Hgb Equivalent 26.5 L (29.0-35.0) pg Sodium 137 (135-149) mmol/L Potassium 3.7 (3.6-5.1) mmol/L Chloride 97 (96-114) mmol/L Carbon Dioxide 25 (20-32) mmol/L Anion Gap 15 (7-15) mEq/L BUN 15 (5-24) mg/dL Creatinine 1.2 (0.5-1.5) mg/dL Estimated GFR 89 ml/min Glucose 93 (60-115) mg/dL Lactate 1.2 (0.5-1.9) mmol/L Calcium 9.0 (8.4-10.6) mg/dL Total Bilirubin 1.1 (0.1-1.5) mg/dL Direct Bilirubin 0.4 (0.0-0.5) mg/dL AST 41 H (12-35) U/L ALT 78 H (4-50) U/L Alkaline Phosphatase 65 (40-150) U/L Total Protein 7.6 (6.0-8.3) g/dL Albumin 4.5 (3.3-5.0) g/dL Imaging Data CT scan - abdomen: Attestation: I have reviewed the pertinent imaging results. Radiologist's impression: IMPRESSIONS: 1. There is suspected mild wall thickening present in the rectosigmoid colon. Colitis, proctitis or inflammatory bowel disease should be considered. 2. Multiple mesenteric and ileocolic lymph nodes are present measuring up to 10 mm. These may be reactive or due to mesenteric adenitis. Discharge Plan Discharge Clinical Impression: Colitis, Diarrhea, Hematuria Patient Disposition: Home, Self-Care Condition: Stable Instructions: Acute Diarrhea (ED), Colitis (ED) Additional Instructions: As we discussed, the cause of your diarrhea is not definitively clear at this time. However, I strongly suspect that this is caused by a food-borne illness and infection. The stool cultures will take 1-2 days to come back from the laboratory. If the result with a bacterial infection that requires treatment with antibiotics, we will call you from the ER and start you on antibiotics right away. Many forms of diarrhea will get better without antibiotic. Some bacteria that caused diarrhea will actually get worse with antibiotics. Therefore, we cannot start you on antibiotics until we have the stool culture results back . Laboratory workup shows signs that you do have blood in your urine. It is not clear if this is related to your diarrhea or not. Your kidney function, blood counts, hemoglobin, and white blood cell count look reassuring. However I want you to recheck with your doctor or come back to the ER in 24-48 hours for another checkup and repeat labs. If you get worse, come back to the ER right away. In particular, return right away if you have worsening abdominal pain, fever, weakness, increasing bloody stool, uncontrolled vomiting or dehydration. Prescriptions: No Action Cotempla XR-ODT 25.9 mg tablet,disinteg ER biphase 24h 25.9 mg PO DAILY albuterol sulfate [Ventolin HFA] 90 mcg/actuation HFA aerosol inhaler 2 puff inhalation Q6H PRN (Reason: shortness of breath or wheezing) Qty: 6.7 0RF Rx Instructions: May substitute generic Follow Up/Referrals: Jayy Monk PA-C [Primary Care Provider, Family Practice] Stand Alone Forms: Work/School Release, [facility] Info Instructions
[2025-06-15 19:22] VITALS: BP 147/87; PULSE 90; RESP 18; TEMP 36.9; O2SAT 96
--- NOTE | 2025-06-15 19:52 | CRLHL7_ITS ---
For Patients: As a result of the Century Cures Act, medical imaging exams and procedure reports are released immediately into your electronic medical record. You may view this report before your referring provider. If you have questions, please contact your health care provider. INDICATION: Blood in recent bowel movement, and dark urine, abdominal pain TECHNIQUE: CT Abdomen and pelvis with i.v. contrast. Coronal and sagittal reformats were obtained. CONTRAST: 124 mL Isovue 370 COMPARISON: None FINDINGS: Lower chest: Unremarkable. Liver: Moderate, diffuse fatty infiltration of the liver is present. Spleen: Unremarkable. Pancreas: Unremarkable. Gallbladder: Unremarkable. Kidney: Unremarkable. No kidney or ureteral stones or obstruction seen. Adrenal: Unremarkable. Bowel: There is suspected mild wall thickening present in the rectosigmoid colon. The appendix is normal in appearance and size. Vascular: Unremarkable. Lymph: Multiple mesenteric and ileocolic lymph nodes are present measuring up to 10 mm. Peritoneum: Unremarkable. No pneumoperitoneum is seen. No significant ascites is noted. Pelvis: Unremarkable. Soft tissue: Unremarkable. Bone: Unremarkable for age. IMPRESSIONS: 1. There is suspected mild wall thickening present in the rectosigmoid colon. Colitis, proctitis or inflammatory bowel disease should be considered. 2. Multiple mesenteric and ileocolic lymph nodes are present measuring up to 10 mm. These may be reactive or due to mesenteric adenitis. Dictated by Chavez Lincoln MD @ 06/15/2025 8:20:30 PM Please note that all CT scans at this facility use dose modulation, iterative reconstruction, and/or weight-based dosing when appropriate to reduce radiation dose to as low as reasonably achievable. Dictated by: Chavez Lincoln MD @ 06/15/2025 20:22:33 (Electronically Signed)
[2025-06-15 20:16] LABS: Lactate* 1.2 mmol/L (0.5-1.9)
[2025-06-15 20:24] LABS: Hematocrit* 45.6 % (37.0-53.0); Hemoglobin* 15.5 gm/dL (13.5-17.5); Immature Granulocytes Abs Auto 0.01 K/uL (0.00-0.30); Immature Granulocytes Pct Auto 0.1 %; Mean Corpuscular HGB Conc 34 gm/dL (32-36); Mean Corpuscular Hemoglobin 29 pg (26-34); Mean Corpuscular Volume 84 fL (80-100); RDW Coefficient of Variation % 12.2 % (11.5-15.5); Red Blood Count* 5.44 m/uL (4.30-5.90); White Blood Count* 7.96 K/uL (4.50-11.00)
[2025-06-15 20:27] LABS: Lymphocytes Absolute Auto 1.40 K/uL (0.90-2.90); Slide Review Reflex No
[2025-06-15 20:36] LABS: Chloride* 97 mmol/L (96-114)
[2025-06-15 20:37] LABS: Albumin* 4.5 g/dL (3.3-5.0); Potassium* 3.7 mmol/L (3.6-5.1); Sodium* 137 mmol/L (135-149)
[2025-06-15 20:39] LABS: Anion Gap 15 mEq/L (7-15); Blood Urea Nitrogen* 15 mg/dL (5-24); Carbon Dioxide* 25 mmol/L (20-32); Creatinine* 1.2 mg/dL (0.5-1.5); Estimated Glomerular Filt Rate 89 ml/min
[2025-06-15 20:40] LABS: Alanine Aminotransferase* 78 U/L (4-50); Alkaline Phosphatase* 65 U/L (40-150); Aspartate Amino Transferase* 41 U/L (12-35); Bilirubin Direct* 0.4 mg/dL (0.0-0.5); Bilirubin Total* 1.1 mg/dL (0.1-1.5); Calcium* 9.0 mg/dL (8.4-10.6); Glucose* 93 mg/dL (60-115); Total Protein* 7.6 g/dL (6.0-8.3)
[2025-06-15 20:51] LABS: Immature Reticulocyte Fraction 19.5 % (2.3-13.4); Reticulocyte Hemoglobin Equivi 26.5 pg (29.0-35.0); Reticulocytes Absolute 0.08 # (0.03-0.08)
[2025-06-18 02:38] LABS: Campylobacter PCR Not Detected; Enteroaggregative E coli PCR Not Detected; Enteropathogenic E coli PCR Not Detected; Enterotoxigenic E coli PCR Not Detected; Plesiomonas shig PCR Not Detected; Shiga toxin E coli PCR Not Detected
--- NOTE | 2025-06-22 09:24 | ED_ITS ---
ED Chart Note Chart Note Details Date: 06/22/25 Details: Patient grew Salmonella in his stool. I called him today, he is asymptomatic and has been asymptomatic for the past 3-4 days. No diarrhea, no fevers no chills, no abdominal pain. [facility] health has followed this up, with a ca ll, they told him he did need antibiotics which I agree in this situation would just cause increased shedding increased time. 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 His any symptoms he will need follow-up cultures to ensure that he is no longer shadowing. [place] however does not require this. He was comfortable this plan.
== END 2025-06-15 21:35 | disposition home or self-care (01) ==
PROVIDERS: Emergency Provider Emergency Medicine; PCP Physician Assistant Medical
DX: K52.9 Noninfective gastroenteritis and colitis, unspecified (principal); R31.9 Hematuria, unspecified; R10.85 Abdominal pain of multiple sites
CPT/HCPCS: 36415; 74177; 80053; 80076; 83605; 85025; 85045; 87493; 87507; 96360; 99284; 99285; J7030; Q9967